=== PATIENT | female | born 1950 | race African-American/Black ===

== ENCOUNTER → 2018-10-14 | Day surgery (SDC) | payer BC, MEDICARE ==
[2018-10-13 18:45] LABS: BASOPHILS % 0.2 % (0.0-1.0); EOSINOPHILS % 0.2 % (0.0-6.0); HEMATOCRIT 39.1 % (34.2-44.1); HEMOGLOBIN 12.1 g/dL (12.0-16.0); LYMPHOCYTES # (AUTO) 1.8 (1.0-3.2); LYMPHOCYTES % 14.7 % (18.0-39.1); MEAN CORPUSCULAR HEMOGLOBIN 23.7 pg (28-32); MEAN CORPUSCULAR HGB CONC 30.9 g/dL (31-35); MEAN CORPUSCULAR VOLUME 76.7 fL (81-99); MONOCYTES # (AUTO) 1.2 (0.2-0.8); MONOCYTES % 9.5 % (4.4-11.3); NEUTROPHILS # (AUTO) 9.1 (2.1-6.9); NEUTROPHILS % 74.9 % (38.7-80.0); PLATELET COUNT 357 x10e3/uL (140-360); RED CELL DISTRIBUTION WIDTH 17.2 % (11.7-14.4)
[2018-10-13 18:56] LABS: INR 0.92; PROTHROMBIN TIME 13.2 seconds (11.9-14.5)
[2018-10-13 19:06] LABS: ALBUMIN 3.5 g/dL (3.5-5.0); ALBUMIN/GLOBULIN RATIO 0.7 (0.8-2.0); ANION GAP 16.6 mmol/L (8-16); CALCIUM 9.9 mg/dL (8.4-10.2); CREATININE, SERUM 1.15 mg/dL (0.57-1.11); POTASSIUM 4.6 mmol/L (3.5-5.1)
[2018-10-14] VITALS (9 sets, daily range): BP systolic 110–130; BP diastolic 52–92
[~2018-10-14] VITALS: Ht 154.9 cm; Wt 128.8 kg
[~2018-10-14] MED LIST: ACYCLOVIR TOP; ALENDRONATE SOD70 MG PO; AMIODORONE PO; CALCIUM 500+D1 EACH PO; FENTANYL CITRATE/PF 100MCG/2 ML INJ ONE; FUROSEMIDE INJ 10 MG/ML 4 ML VIAL ONE; FUROSEMIDE40 MG PO; HEPARIN SOD/SOD CHLORIDE 2,000 ML ONE; HYDRALAZINE HCL25 MG PO; IOPAMIDOL 370 MG/ML 200 ML INFUS..BTL INJ ONE; ISOSORBIDE MONO30 MG PO; LIDOCAINE HCL 2% LOCAL 20 ML VIAL ONE; MAGNESIUM OXID400 MG PO; METFORMIN HCL500 MG PO; METOPROLOL SUCC50 MG PO; MIDAZOLAM HCL 2 MG/2 ML VIAL ONE; MUPIROCIN TOP; NYSTATIN PO; POTASSIUM CHLO10 ME1 PO; SODIUM CHLORIDE 0.9% 1000ML 1,000 ML ONE; TYLENOL325 MG PO; ULTRAM 50MG50 MG PO; [UNRECOGNIZED DRUG - OTHER] PO; [UNRECOGNIZED DRUG - OTHER] TOP
--- OUTSIDE RECORDS SUMMARY | 2018-10-14 09:03 | XMS REPORT | Clinical Summary ---
Author Author [facility] Organization [facility] Address Unknown Phone Unavailable Care Team Providers Care Precision Instrument Maker Name Role Phone Bobby Ibanez MD PCP Allergies Comments Active Allergy Reactions Severity Noted Date Cefaclor 09/21/2018 Throat drianage Egg Other (See 09/21/2018 Comments) Erythromycin 09/21/2018 Milk Hives 09/21/2018 Medications End Date Status Medication Sig Dispensed Refills Start Date 10/21/2018 Active hydrOXYzine (ATARAX) 25 Take 1 tablet 15 tablet 0 MG tablet (25 mg total) 8 by mouth every 6 (six) hours as needed for itching for up to 30 days. 09/21/2018 Discontinued levoFLOXacin (LEVAQUIN) Take 1 tablet 5 tablet 0 500 MG tablet (500 mg 8 total) by mouth daily for 5 days. 09/28/2018 nitrofurantoin Take 1 21 capsule 0 (MACRODANTIN) 100 MG capsule (100 8 capsule mg total) by mouth 3 (three) times a day for 7 days. Active Problems Not on file Encounters Care Team Description Date Type Specialty Franklin Causey MD Urinary tract infection with hematuria, site unspecified (Primary Dx); Right facial swelling; Fever, unspecified fever cause 09/21/2018 Emergency Emergency Medicine 09/21/2018 Travel after 10/13/2017 Social History Date Tobacco Use Types Packs/Day Years Used Never Smoker Alcohol Use Drinks/Week oz/Week Comments Yes Sex Assigned at Date Recorded Not on file Industry Job Start Date Occupation Not on file Not on file Not on file Travel End Travel History Travel Start No recent travel history available. Last Filed Vital Signs Time Taken Vital Sign Reading 09/21/2018 4:16 PM [facility]ER [facility]TER Blood Pressure 184/79 09/21/2018 4:16 PM [facility]TER Pulse 96 09/21/2018 4:16 PM [facility]ER SLITTER Temperature 37.8 C (100 F) 09/21/2018 4:16 PM [facility]ER SLITTER Respiratory Rate 18 09/21/2018 4:16 PM PAPER SLITTER Oxygen Saturation 96% - Inhaled Oxygen - Concentration 09/21/2018 12:48 PM PAPER SLITTER Weight 129 kg (284 lb) 09/21/2018 12:48 PM [facility]ER SLITTER Height 154.9 cm (5' 1") 09/21/2018 12:48 PM PAPER SLITTER Body Mass Index 53.66 Plan of Treatment Health Maintenance Due Date Last Done Comments BREAST CANCER SCREENING 2002 COLON CANCER SCREENING 2002 SHINGLES VACCINES (1 of 2002 2) PNEUMOCOCCAL 2017 POLYSACCHARIDE VACCINE AGE 65 AND OVER PNEUMOCOCCAL-13 2017 INFLUENZA VACCINE 05/26/2018 Procedures Comments Procedure Name Priority Date/Time Associated Diagnosis ECG 12-LEAD STAT 09/21/2018 3:25 PM PAPER SLITTER XR CHEST 2 VW STAT 09/21/2018 3:24 PM PAPER SLITTER ESTIMATED GFR STAT 09/21/2018 3:03 PM PAPER SLITTER HC COMPLETE BLD COUNT STAT 09/21/2018 W/AUTO DIFF 3:03 PM [facility]ER SLITTER COMPREHENSIVE METABOLIC STAT 09/21/2018 PANEL 3:03 PM [facility]APER SLITTER B NATRIURETIC PEPTIDE STAT 09/21/2018 3:03 PM [facility]ER SLITTER TROPONIN STAT 09/21/2018 3:03 PM PAPER SLITTER LACTIC ACID LEVEL, SEPSIS STAT 09/21/2018 - NOW AND REPEAT 2X EVERY 3:03 PM PAPER SLITTER 3 HOURS GRAM STAIN STAT 09/21/2018 3:03 PM PAPER SLITTER URINE CULTURE STAT 09/21/2018 3:03 PM [facility]AP[facility] SLITTER BLOOD CULTURE, AEROBIC & Routine 09/21/2018 ANAEROBIC 3:02 PM [facility]APER SLITTER URINALYSIS SCREEN AND STAT 09/21/2018 MICROSCOPY, WITH REFLEX 2:45 PM PAPER SLITTER TO CULTURE STREP SCREEN CULTURE Routine 09/21/2018 2:45 PM PAPER SLITTER GROUP A STREP, RAPID Routine 09/21/2018 ANTIGEN 2:45 PM [facility]ER SLITTER INFLUENZA ANTIGEN Routine 09/21/2018 2:45 PM [facility]ER SLITTER BLOOD CULTURE, AEROBIC & Routine 09/21/2018 ANAEROBIC 2:45 PM PAPER SLITTER ECG ED PRELIMINARY Routine 09/21/2018 INTERPRETATION 2:37 PM PAPER SLITTER after 10/13/2017 Results * ECG 12 lead (09/21/2018 3:25 PM PAPER SLITTER) Ventricular rate 94 [facility] Atrial rate 94 [facility] NV interval 140 [facility] QRSD interval 128 [facility] QT interval 412 [facility] QTC interval 515 [facility] P axis 1 48 [facility] QRS axis 1 52 [facility] T wave axis 53 [facility] EKG impression Atrial-sensed [facility] ventricular-paced rhythm-Abnormal ECG-No previous ECGs available- Narrative Performed At Performing Organization Address City/State/Zipcode Phone Number [facility] [address] [place] [address] * XR Chest 2 Vw (09/21/2018 3:24 PM PAPER SLITTER) Narrative Performed At EXAMINATION:XR CHEST 2 VW RADIANT CLINICAL HISTORY:cough XR CHEST 2 VWimages are submitted COMPARISON:NONE FINDINGS: The cardiac silhouette is normal in size. The pulmonary vasculature is within normal limits. The lung zones are clear. There is no pleural effusion or pneumothorax. A dual-lead AICD device is present. IMPRESSION: 1. There is no acute cardiopulmonary disease. [id number] Procedure Note Hm Interface, Radiology Results Incoming - 09/21/2018 3:42 PM PAPER SLITTER EXAMINATION: XR CHEST 2 VW CLINICAL HISTORY: cough XR CHEST 2 VW images are submitted COMPARISON: NONE FINDINGS: The cardiac silhouette is normal in size. The pulmonary vasculature is within normal limits. The lung zones are clear. There is no pleural effusion or pneumothorax. A dual-lead AICD device is present. IMPRESSION: 1. There is no acute cardiopulmonary disease. [id number] Performing Organization Address City/State/Zipcode Phone Number [facility] [address] [place] [address] * Estimated GFR (09/21/2018 3:03 PM PAPER SLITTER) Estimated GFR >=90 mL/min/1.73 m2 RENE STOVER Comment: [facility] CatergoryUnitsInte rpretation G1 >=90 Normal or high G2 60-89Mildly decreased [id number] Mildly to moderately decreased G0d70-83 Moderately to severely decreased G4 15-29Severely decreased G5 <15Kidney failure The eGFR was calculated using the Chronic Kidney Disease Epidemiology Collaboration (CKD-EPI) equation. Interpretation is based on recommendations of the National Kidney Foundation-Kidney Disease Outcomes Quality Initiative (NKF-KDOQI) published in 2014. Specimen Plasma specimen Performing Organization Address [facility]/[place] [address] PATHOLOGY AND GENOMIC MEDICINE [address] * Lactic acid level, SEPSIS - Now and repeat 2x every 3 hours (09/21/2018 3:03 PM PAPER SLITTER) Lactic acid 1.3 0.5 - 2.2 mmol/L [facility] Specimen Blood Performing Organization Address [facility] [place] [address] PATHOLOGY AND GENOMIC MEDICINE [address] * Troponin (09/21/2018 3:03 PM PAPER SLITTER) Troponin <0.300 0.000 - 0.300 ng/mL RENE STOVER Comment: [facility] The diagnostic value of a single normal or non-diagnostic result is questionable.Serial samples at 2-6 hour intervals are required to rule out acute myocardial injury. Specimen Plasma specimen Performing Organization Address City/State/[place] [address] PATHOLOGY AND GENOMIC MEDICINE [address] * Gram stain (09/21/2018 3:03 PM PAPER SLITTER) Gram stain result Few WBC's [facility] Occasional Gram negative rods HOSPITAL Comment: Specimen Information Specimen Source: Urine Specimen Site: Clean catch Specimen Urine Performing Organization Address City/State/Zipcode Phone Number [place] [phone] [place] [address] PATHOLOGY AND GENOMIC MEDICINE [address] [address] [facility] * CBC with platelet and differential (09/21/2018 3:03 PM PAPER SLITTER) WBC 9.3 4.5 - 11.0 k/uL [facility] RBC 4.43 4.20 - 5.50 M/uL [facility] HGB 10.5 (L) 14.0 - 18.0 g/dL [facility] HCT 33.5 (L) 37.0 - 47.0 % [facility] MCV 75.6 (L) 82.0 - 100.0 fL [facility] MCH 23.7 (L) 27.0 - 34.0 pg [facility] MCHC 31.3 31.0 - 37.0 g/dL [facility] RDW - SD 45.2 37.0 - 55.0 fL [facility] MPV 9.5 8.8 - 13.2 fL [facility] Platelet count 366 150 - 400 K/uL [facility] Nucleated RBC 0.00 /100 WBC [facility] Neutrophils 65.4 39.0 - 69.0 % [facility] Lymphocytes 18.8 (L) 25.0 - 45.0 % [facility] Monocytes 10.8 (H) 0.0 - 10.0 % [facility] Eosinophils 4.0 0.0 - 5.0 % [facility] Basophils 0.4 0.0 - 1.0 % [facility] Immature granulocytes 0.6Comment: "Immature 0.0 - 1.0 % [facility] granulocytes" (promyelocytes, [facility] myelocytes, metamyelocytes) Specimen Blood Performing Organization Address City/State/Zipcode Phone Number [facility] DEPARTMENT [address] [address] PATHOLOGY AND GENOMIC MEDICINE RENE STOVER [address] [facility] [address] [place] [address] [facility] * Urine culture (09/21/2018 3:03 PM PAPER SLITTER) Urine culture isolate Klebsiella pneumoniae RENE STOVER >10-5 cfu/ml [facility]OSPITAL The performance characteristics of this assay on this isolate were validated by the Microbiology Laboratory at [facility].This source has not been approved by the U.S. Food and Drug Administration.The results are not intended to be used as the sole means for clinical diagnosis or patient management.The Microbiology Laboratory is authorized under the clinical Laboratory Improvement Amendments of 1988 (CLIA-88) to perform high complexity testing. (A) Comment: Specimen Information Specimen Source: Urine Specimen Site: Clean catch Specimen Urine Antibiotic Method Susceptibility Organism Ampicillin WAQAS >16 mcg/mL: Resistant Klebsiella pneumoniae Amoxicillin/Clavulanate WAQAS <=2/1 mcg/mL: Susceptible Klebsiella pneumoniae Amikacin WAQAS <=4 mcg/mL: Susceptible Klebsiella pneumoniae Aztreonam WAQAS <=1 mcg/mL: Susceptible Klebsiella pneumoniae Ceftazidime WAQAS <=0.5 mcg/mL: Susceptible Klebsiella pneumoniae Ciprofloxacin WAQAS 1 mcg/mL: Susceptible Klebsiella pneumoniae Ceftriaxone WAQAS <=0.5 mcg/mL: Susceptible Klebsiella pneumoniae Cefuroxime Sodium WAQAS <=4 mcg/mL: Susceptible Klebsiella pneumoniae Cefazolin WAQAS 2 mcg/mL: Susceptible Klebsiella pneumoniae Cefepime WAQAS <=0.5 mcg/mL: Susceptible Klebsiella pneumoniae Nitrofurantoin WAQAS >64 mcg/mL: Resistant Klebsiella pneumoniae Cefoxitin WAQAS <=4 mcg/mL: Susceptible Klebsiella pneumoniae Gentamicin WAQAS 1 mcg/mL: Susceptible Klebsiella pneumoniae Imipenem WAQAS <=0.25 mcg/mL: Susceptible Klebsiella pneumoniae Levofloxacin WAQAS <=1 mcg/mL: Susceptible Klebsiella pneumoniae Meropenem WAQAS <=0.125 mcg/mL: Susceptible Klebsiella pneumoniae Tobramycin WAQAS 1 mcg/mL: Susceptible Klebsiella pneumoniae Ampicillin/Sulbactam WAQAS 8/4 mcg/mL: Susceptible Klebsiella pneumoniae Trimethoprim/Sulfamethoxazole WAQAS >2/38 mcg/mL: Resistant Klebsiella pneumoniae Tetracycline WAQAS >8 mcg/mL: Resistant Klebsiella pneumoniae Piperacillin/Tazobactam WAQAS 4/4 mcg/mL: Susceptible Klebsiella pneumoniae Ertapenem WAQAS <=0.125 mcg/mL: Susceptible Klebsiella pneumoniae Tigecycline WAQAS 1 mcg/mL: Susceptible Klebsiella pneumoniae Performing Organization Address City/[facility]/Zipcode Phone Number [facility]MENT [facility] [address] [place] [address] PATHOLOGY AND GENOMIC MEDICINE [facility] [address] [place] [address] * B natriuretic peptide (09/21/2018 3:03 PM PAPER SLITTER) BNP 146 (H) 0 - 100 pg/mL [facility] Specimen Blood Performing Organization Address City/[facility]/Zipcode Phone Number [address] [place] [address] PATHOLOGY AND GENOMIC MEDICINE [place] [phone] [facility] [address] [place] [address] [facility] * Comprehensive metabolic panel (09/21/2018 3:03 PM PAPER SLITTER) Sodium 138 135 - 148 mEq/L [facility] Potassium 3.5 3.5 - 5.0 mEq/L [facility] Chloride 98 (L) 99 - 109 mEq/L [facility] CO2 26 24 - 31 mEq/L [facility] Anion gap 14@ANIO 7 - 15 mEq/L [facility] BUN 6 (L) 8 - 24 mg/dL [facility] Creatinine 0.70 0.50 - 0.90 mg/dL [facility] Glucose 113 (H) 65 - 99 mg/dL [facility] Calcium 8.7 8.6 - 10.6 mg/dL [facility] Protein 8.1 6.3 - 8.2 g/dL [facility] Albumin 3.6 3.5 - 5.0 g/dL [facility] A/G ratio 0.80 0.70 - 3.80 [facility] Alkaline phosphatase 99 30 - 115 U/L [facility] AST 25 15 - 46 U/L [facility] ALT 11 10 - 55 U/L [facility] Total bilirubin 0.4 0.2 - 1.2 mg/dL [facility] Specimen Plasma specimen Performing Organization Address [facility]/Zipcode Phone Number [place] [phone] [facility] [address] [place] [address] PATHOLOGY AND GENOMIC MEDICINE [facility] [address] [facility] [address] [place] [address] [facility] * Blood culture, aerobic & anaerobic (09/21/2018 3:02 PM PAPER SLITTER) Only the most recent of 2 results within the time period is included. Blood culture isolate No growth after 5 days of [facility] incubation. HOSPITAL Comment: Specimen Information Specimen Source: Blood Specimen Site: Antecubital, left Specimen Blood - Antecubital, left Performing Organization Address City/State/Zipcode Phone Number [facility] OF [address] [place] [address] PATHOLOGY AND GENOMIC MEDICINE [facility] [address] [place] [address] HOSPITAL * Urinalysis screen and microscopy, with reflex to culture (09/21/2018 2:45 PM PAPER SLITTER) Specimen site Clean catch [facility] Color, UA Meryl YELLOW [facility] Appearance, UA Cloudy (A) Clear [facility] Specific gravity, UA 1.023 1.005 - 1.030 [facility] pH, UA 5.0 5.0 - 8.0 [facility] Protein, UA 1+ (A) Negative [facility] Glucose, UA Negative Negative [facility] Ketones, UA Trace (A) Negative [facility] Bilirubin, UA Negative Negative [facility] Blood, UA Negative Negative [facility] Nitrite, UA Positive (A) NEGATIVE [facility] Urobilinogen, UA <2.0 <2.0 E.U./dL [facility] Leukocyte esterase, UA Large (A) Negative [facility] Epithelial cells, UA 7 0 - 15 /HPF [facility] WBC, UA 109 (H) 0 - 5 /Hpf [facility] RBC, UA 8 (H) 0 - 5 /HPF [facility] Bacteria, UA Many (A) None seen [facility] Yeast, UA None seen None Seen [facility] Yeast with pseudohyphae, None seen [facility] UA [facility] Hyaline casts, UA 0-2 0 - 1 [facility] Specimen Urine Performing Organization Address City/State/[place] [address] PATHOLOGY AND GENOMIC MEDICINE [address] * Group A strep, rapid antigen (09/21/2018 2:45 PM PAPER SLITTER) Group A strep, rapid Negative for Group A [facility] antigen result Streptococcus antigen. [facility] Comment: Specimen Information Specimen Source: Throat Specimen Site: Not otherwise specified Specimen Throat - Not otherwise specified Performing Organization Address City/State/[place] [address] PATHOLOGY AND GENOMIC MEDICINE [address] * Influenza antigen (09/21/2018 2:45 PM PAPER SLITTER) Influenza antigen Negative for Influenza A/B [facility]. [facility] Comment: Specimen Information Specimen Source: Nares Specimen Site: Right Specimen Nares - Right Performing Organization Address City/State/[place] [address] PATHOLOGY AND GENOMIC MEDICINE [address] * Strep screen culture (09/21/2018 2:45 PM PAPER SLITTER) Strep screen culture No beta hemolytic Streptococci [facility] isolate isolated HOSPITAL Comment: Specimen Information Specimen Source: Throat Specimen Site: Not otherwise specified Specimen Throat - Not otherwise specified Performing Organization Address City/State/Zipcode Phone Number [facility] [address] [place] [address] PATHOLOGY AND GENOMIC MEDICINE [address] * ECG ED Preliminary Interpretation - Not an Order (09/21/2018 2:37 PM PAPER SLITTER) Narrative Performed At Franklin Causey MD 09/21/20185:18 PM ECG ED Preliminary Interpretation - Not an Order Performed by: Franklin Causey MD Authorized by: Franklin Causey MD ECG reviewed by ED Physician in the absence of a tool chaser: yes Previous ECG: Previous ECG:Unavailable Interpretation: Interpretation: normal Rate: ECG rate:94 ECG rate assessment: normal Rhythm: Rhythm: sinus rhythm and paced Pacing: Capture:Complete Type of pacing:Atrial ST segments: ST segments:Normal T waves: T waves: normal after 10/13/2017 Insurance Payer Benefit Subscriber ID Type Phone Address Plan / Group MEDICARE MEDICARE xxxxxxxxxxx Medicare [place], [place] PART A AND B BCBS BCBS xxxxxxxxx PPO CHOICE PPO/NIKITA TORRES PPO Advance Directives Patient has advance care planning documents on file. For more information, noni araujo contact: Rene Stover [address] [place] [address]
--- OUTSIDE RECORDS SUMMARY | 2018-10-14 09:03 | XMS REPORT ---
Author Author [facility] Address Unknown Phone Unavailable Care Team Providers Care Pattern Maker Programer Name Role Phone JUAN FRANCISCO MENDIETA JR Unavailable Unavailable Problems This patient has no known problems. Allergies, Adverse Reactions, Alerts This patient has no known allergies or adverse reactions. Medications This patient has no known medications. Results Test Description Test Time Test Comments Text Results Atomic Results Result Comments POC Glucose, Blood 2017-01-21 07:04:00 POC Glucose (test code=POCGLUC) 121 mg/dL 70-115 If you consider your patient critically ill, the Lori Accu-Chek InformII metershould not be used for Glucose determinations.Draw a venous Glucose and send to the Main Lab for Analysis.
--- NOTE | 2018-10-14 16:00 | Operative Report ---
DATE OF PROCEDURE: October 14, 2018 CARDIAC CATHETERIZATION PROCEDURES 1. Selective coronary angiography x2. 1. Left heart catheterization. SEDATION 1. Midazolam 3 mg. 2. Fentanyl 75 mcg. CONSENT: Informed consent was obtained and documented in the chart. INDICATION: Ventricular fibrillation. PROCEDURE IN DETAIL: The patient was brought to the cardiac catheterization laboratory in a fasting state after written informed consent was performed. Bilateral groins were prepped and draped in the usual sterile fashion. Lidocaine 1% was used to achieve local anesthesia. Systemic sedation was given as above. The right common femoral artery was accessed under ultrasound guidance. A 5-Tunisian sheath was placed via modified Seldinger technique. A 5-Tunisian JR-4 was inserted and advanced into the ascending aorta. The right coronary artery was cannulated under fluoroscopic guidance. Selective coronary angiography was obtained. The JR-4 was removed, and a 5-Tunisian JL-4 was inserted and advanced into the ascending aorta. The left main coronary artery was cannulated under fluoroscopic guidance. Selective coronary angiography was performed. Next, a 5-Tunisian pigtail was inserted and advanced into the ascending aorta and left ventricle under fluoroscopic guidance. Hemodynamic measurements were obtained. The 5-Tunisian pigtail was removed. Angiogram was performed of the right external iliac artery. The 5-Tunisian sheath was removed. Vascade closure device was used to achieve hemostasis. No immediate complications were noted. FINDINGS 1. The left main coronary artery bifurcates into the LAD and circumflex arteries. The LAD is a medium-caliber vessel that wraps around the apex. There were luminal irregularities noted. 2. The circumflex is a large-diameter vessel which gives rise to a small OM1 as well as a large branching OM2. Luminal irregularities were noted. 3. The right coronary artery is a large-caliber vessel that gives rise to the PDA. There was 20% stenosis in the proximal portion. 4. LVEDP 27 mmHg. CONCLUSION 1. Nonobstructive coronary artery disease. 2. Nonischemic cardiomyopathy. 3. Elevated left ventricular filling pressures. RECOMMENDATIONS: Continue optimAL medical therapy for patient's chronic systolic heart failure. Replete electrolytes. Diuresis. Job#: [id number]
== END | disposition home or self-care (01) ==
LOC: CATH LAB 09:01
PROVIDERS: ATTEND Internal Medicine
DX: I49.01 Ventricular fibrillation (principal); I25.10 Atherosclerotic heart disease of native coronary artery without angina pectoris; I42.8 Other cardiomyopathies; Z01.812 Encounter for preprocedural laboratory examination; E11.9 Type 2 diabetes mellitus without complications; I11.0 Hypertensive heart disease with heart failure; I50.22 Chronic systolic (congestive) heart failure; Z95.810 Presence of automatic (implantable) cardiac defibrillator; Z79.84 Long term (current) use of oral hypoglycemic drugs; Z68.43 Body mass index [BMI] 50.0-59.9, adult; Z82.49 Family history of ischemic heart disease and other diseases of the circulatory system
CPT/HCPCS: 36415 ×2; 80053; 82948; 85025; 85610; 93458; C1760; C1769; J1940; J2001; J2250; J7030; Q9967